=== PATIENT | male | born 1985 | race Two or more races ===

== ENCOUNTER 2024-08-26 11:59 | Emergency (ER) | payer MEDICAID, SELFPAY ==
[2024-08-26 12:06] VITALS: BP 150/95; PULSE 79; RESP 18; TEMP 37.1; O2SAT 99; BMI 34.2
--- NOTE | 2024-08-26 12:10 | XR_ITS ---
Examination: Foot, right, 3 views Technique: AP, oblique, lateral views foot, 3 views Date and time of exam: August 26, 2024 1211 hrs. Indications: Injury to the foot 2 weeks ago with redness swelling and pain, clinical diagnosis osteomyelitis Findings: No fracture or dislocation No cortical bone destruction No opaque foreign body Impression: No cortical bone destruction
--- NOTE | 2024-08-26 12:11 | PD.EDRME ---
Rapid Medical Screening Exam [facility] Arrival date/time: 08/26/24 11:59 38-year-old male with no known medical history presents to the emergency room with a chief complaint of swelling and pain to his right foot. Patient states 2 weeks ago he went and got ingrown toenails removed from his first and second digits. Patient states there is no swelling, pain and drainage coming from those toes. I have greeted and performed a focused initial assessment of this patient. A comprehensive ED assessment and evaluation of the patient, analysis of all test results, and completion of the medical decision making process will be conducted by additional ED providers. Chief Complaint: Ankle/Foot Injury Vital signs: Vital Signs Temperature 98.8 F 08/26/24 12:06 Pulse Rate 79 08/26/24 12:06 Respiratory Rate 18 08/26/24 12:06 Blood Pressure 150/95 H 08/26/24 12:06 Pulse Oximetry (%) 99 08/26/24 12:06 Oxygen Delivery Method Room Air 08/26/24 12:06 Vital signs reviewed by provider: Yes
[2024-08-26 12:28] LABS: Basophils # (Auto) 0.1 Thou/mm3 (0.0-0.2); Basophils % (Auto) 0 % (0-2.5); Eosinophils # (Auto) 0.1 Thou/mm3 (0.0-0.5); Eosinophils % (Auto) 0 % (0-10); Hematocrit 42.4 % (41.0-53.0); Hemoglobin 15.7 g/dL (13.5-16.0); Immature Granulocytes % (Auto) 0 % (0-0); Immature Granulocytes Auto 0.03 Thou/mm3 (0.00-0.00); Lymphocytes # (Auto) 1.7 Thou/mm3 (1.0-4.8); Lymphocytes % (Auto) 15 % (10-50); Mean Corpuscular Hemoglobin 30.1 pg (25.0-35.0); Mean Corpuscular Volume 81 fL (80-100); Monocytes # (Auto) 0.6 Thou/mm3 (0.0-0.8); Monocytes % (Auto) 5 % (0-12); Neutrophils % (Auto) 79 % (37-80); Nucleated Red Blood Cell % 0 /100 WBC (0); Platelet Count 285 Thou/mm3 (140-440); RDW Standard Deviation 35.8 fL (35.1-43.9); Red Blood Count 5.21 Miln/mm3 (4.50-5.90); White Blood Count 11.5 Thou/mm3 (3.8-10.6)
[2024-08-26 12:43] LABS: Sed Rate (ESR) 10 mm/hr (0-15)
[2024-08-26 12:56] LABS: Alanine Aminotransferase 18 U/L (10-49); Albumin/Globulin Ratio 1.6 (1.2-2.2); Alkaline Phosphatase 71 U/L (46-116); Anion Gap 9 (7-16); Aspartate Amino Transferase 14 U/L (0-34); BUN/Creatinine Ratio 11 Ratio (12-20); Bilirubin,Total 0.6 mg/dL (0.3-1.2); Blood Urea Nitrogen 13 mg/dL (9-23); C-Reactive Protein < 0.4 mg/dL (0.0-0.9); Calcium 10.1 mg/dL (8.3-10.6); Calcium (Corrected) 10.1 mg/dL (8.5-10.1); Carbon Dioxide 29.9 mMol/L (20.0-31.0); Chloride 99 mMol/L (98-107); Creatinine (Component) 1.2 mg/dL (0.6-1.3); Estimated Creatinine Clearance 98.8 mL/min (>60); Globulin 3.2 gm/dL (2.3-3.5); Glucose 111 mg/dL (74-106); Osmolality,Calculated 276 (275-295); Potassium 3.5 mMol/L (3.4-5.1); Sodium 138 mMol/L (136-145); Total Protein 8.2 gm/dL (5.7-8.2); eGFR > 60 See Note
[2024-08-26 15:40] VITALS: BP 147/89; PULSE 85; RESP 18; TEMP 37.2; O2SAT 98
--- NOTE | 2024-08-26 16:11 | EDNOTE_ITS ---
Lower Extremity Injury RME/HPI General Chief Complaint: Ankle/Foot Injury Stated Complaint: RIGHT TOE INFECTED AND UNABLE TO MOVE; CVA NOVEMBER W/ Time Seen by Provider: 08/26/24 16:10 Source: patient Arrival date/time: 08/26/24 11:59 This is a 38-year-old male who presents to the emergency department with complaints of pain and tenderness possible infection to first and second great toe of right foot. He does report he had a partial nail removal with a technology infusion specialist however was never started on antibiotics. Mode of arrival: ambulatory RME / HPI RME / HPI Narrative: 08/26/24 11:59 38-year-old male with no known medical history presents to the emergency room with a chief complaint of swelling and pain to his right foot. Patient states 2 weeks ago he went and got ingrown toenails removed from his first and second digits. Patient states there is no swelling, pain and drainage coming from those toes. I have greeted and performed a focused initial assessment of this patient. A comprehensive ED assessment and evaluation of the patient, analysis of all test results, and completion of the medical decision making process will be conducted by additional ED providers. Related Data Previous Rx's ?Medication ?Instructions ?Recorded clindamycin HCl 300 mg capsule 300 mg PO Q8H 7 days #2 1 caps 08/26/24 mupirocin 2 % topical ointment 1 applic topical BID 7 days #22 08/26/24 grams Allergies Allergy/AdvReac Type Severity Reaction Status Date / Time No Known Allergies Allergy Verified 08/26/24 12:02 Review of Systems Review of Systems Systems Reviewed: All systems reviewed, normal except as documented Narrative Review of Systems: Gen: No fever, no chills, no weight loss EYES: No discharge, no visual changes, no pain HEENT: No ear pain, no congestion, no sore throat PULM: No shortness of breath, no cough, no congestion CV: No chest pain, no dyspnea on exertion, no palpitations GI: No nausea, no vomiting, no diarrhea, no pain, no constipation : No frequency, no urgency, no dysuria Musc/skel: No joint pain, no back pain Skin: toe infection Psyc: No hallucinations, no depression Heme/Lymph: No easy bleeding or bruising tendencies Neuro: No weakness, no headache ED Exam Narrative Physical exam: General: Sittiing in Exam table in no acute distress, answering questions appropriately HENT: normocephalic, atraumatic, EOMI, PERRLA, moist mucous membranes Chest: chest wall is nontender Cardiac: regular rate and rhythm, normal S1 and S2, no murmurs, rubs, or gallops, capillary refill ?2 seconds Pulmonary: clear to auscultation bilaterally, no wheezing, crackles, or rhonchi Abdominal: active bowel sounds, soft, nontender, nondistended Neuro: A&OX3, CN II-XII intact, sensation grossly intact bilaterally in UE and LE. Skin: +erythmea noted to 1st and 2nd toes right foot Ext: no lower extremity edema Course Quality Measures none Orders Category Date Time Status XR foot comp RT min 3V Stat Exams 08/26/24 12:10 Completed CBC Stat Lab 08/26/24 12:15 Completed CMP [Comprehensive Metabolic Panel] Stat Lab 08/26/24 12:15 Completed CRP [C-Reactive Protein] Stat Lab 08/26/24 12:15 Completed ESR [Sed Rate (ESR)] Stat Lab 08/26/24 12:15 Completed Clindamycin Vial [Cleocin vial] Med 08/26/24 16:11 Discontinued 600 mg IM X1 ONE Vital Signs Vital signs: Vital Signs Temperature 98.8 F 08/26/24 12:06 Pulse Rate 79 08/26/24 12:06 Respiratory Rate 18 08/26/24 12:06 Blood Pressure 150/95 H 08/26/24 12:06 Pulse Oximetry (%) 99 08/26/24 12:06 Oxygen Delivery Method Room Air 08/26/24 12:06 Extremity Injury, Lower Patient data External records reviewed:: [facility] [place] previous records Clinical information provided by:: patient Social determinants that could affect healthcare access:: none Patient has the following chronic illnesses:: CVa How is presenting disease/condition affected by chronic disease/condition?: uneffected by Evaluation data The following diagnostics were reviewed and interpreted by me:: lab results and radiology exam(s) Lab and/or radiology exams considered but not ordered:: no Interpretation Summary: Examination: Foot, right, 3 views Technique: AP, oblique, lateral views foot, 3 views Date and time of exam: August 26, 2024 1211 hrs. Indications: Injury to the foot 2 weeks ago with redness swelling and pain, clinical diagnosis osteomyelitis Findings: No fracture or dislocation No cortical bone destruction No opaque foreign body Impression: No cortical bone destruction Medications / Prescriptions Medications or Prescriptions considered but not ordered:: Pain medication Medication administrations:: Medication Administration History Discontinued Medications Clindamycin Phosphate (Clindamycin Phos Inj 150 Mg/Ml Vial 6 Ml) 600 mg IM X1 ONE Stop: 08/26/24 16:12 Last Admin: 08/26/24 16:23 Dose: 600 mg Documented By: All medications administered and effective Consultations Consultation(s) initiated? (list below): No Diagnosis Extremity Injury, Lower Differential Diagnosis: ankle sprain and strain, punc ture wound of foot, fracture of toe and other (Osteomyelitis) Most likely diagnosis given after review of the tests above:: Great toe cellulitis Admission Indicated Admission indicated?: not indicated Admission Request Was there a request for admission?: No Disposition Plan Disposition Plan: Discharge Discharge Attestation Discharge Attestation: The patient and all family members were given an opportunity to ask questions and understood the discharge instructions. Discharge instructions specifically effects, indications for sooner follow up or return to the emergency department, and the expected course of current diagnosis. Patient condition: Stable Discharge Plan Plan Patient Disposition: HOME (Self Care) Patient condition on transfer: Stable Prescriptions/Referrals Prescriptions/Med Rec: New clindamycin HCl 300 mg capsule 300 mg PO Q8H 7 Days Qty: 21 0RF mupirocin 2 % ointment 1 applic topical BID 7 Days Qty: 22 0RF Referrals: Miacela Myers PA-C [Primary Care Provider] - In 1 week Problem List Clinical Impression: Cellulitis of great toe Patient/Caregiver Discharge Instructions Discharge Activity: activity as tolerated Education Materials: ED Cellulitis Additional Instructions: - Start antibiotic as directed -Please do warm soaks 3 times a day. Apply topical antibiotic as directed. Follow-up with your primary doctor on . Return to the emergency department if there is any worsening symptoms change in condition. Print Language: Guyanese Stand Alone Forms: [employer] Award Info., Patient Portal Info Letter YOLANDA/YUE Supervising Physician YOLANDA/YUE Supervising Physician: Dr. Carson
[2024-08-26] MEDS: CLINDAMYCIN PHOS INJ 150 MG/ML VIAL 6 ML 600 MG IM (16:23)
== END 2024-08-26 16:31 | disposition home or self-care (01) ==
PROVIDERS: Nurse Practitioner Family; Emergency Provider Emergency Medicine; PCP Physician Assistant Medical
DX: L03.031 Cellulitis of right toe (principal)
CPT/HCPCS: 36415; 73630; 80053; 85025; 85652; 86140; 96372; 99283; J0736

== ENCOUNTER → 2024-09-01 | Outpatient (CLI) | payer MEDICAID, SELFPAY ==
--- NOTE | 2024-09-01 09:30 | XR_ITS ---
Examination: MRI of brain without intravenous contrast. MRI brain with intravenous contrast. Date and time of exam:September 01, 2024 0940 hours INDICATIONS: Status post cerebral aneurysm, headaches since December 2023 right-sided body numbness, 28 mm acute hemorrhage in the left basal ganglia on CT stroke brain scan December 22, 2022 Technique: Multiple axial and sagittal images of the brain to been obtained. Siemens high-resolution 1.52 Lynn short bore scanner utilized. Sagittal sections, T1 weighted images, TR 500, TE 14, are performed. Axial sections proton-density and T2-weighted images have been obtained. Inversion recovery axial images, TR 9260, TE 111, TR 2500. Diffusion weighted images, axial sections, TR 4800, TE 128, B value 1000. Axial sections, ADC map, TR 4800, TE 128. Axial and coronal images were also obtained post 20 cc gadolinium administered intravenously. Findings:: Enlargement of the sella turcica is not present. The optic chiasm and infundibular stalk are not remarkable. There is no localized enlargement of the medulla or gaurang. Fourth ventricle and cerebellar tonsils appear normal in position. No subacute area of hemorrhage density is seen. Fourth ventricle is midline. Mass in the cerebellopontine angle region is not evident. 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 Mass effect upon the ventricular system is not identified. Diffusion-weighted images demonstrate no focus of restricted diffusion Contrast images demonstrate 6 mm focus enhancement left temporal lobe adjacent to the brainstem pontine level Impression: Negative for acute hemorrhage mass effect or midline shift Old infarcts brainstem left basal ganglia 6 mm focus enhancement left temporal lobe adjacent to the brainstem pontine level, recommend brain MRA MRV post intravenous contrast follow-up
== END | disposition home or self-care (01) ==
PROVIDERS: PCP Physician Assistant Medical; Referring Provider Physician Assistant Medical; Visit Provider Physician Assistant Medical
DX: G93.9 Disorder of brain, unspecified (principal); Z86.73 Personal history of transient ischemic attack (TIA), and cerebral infarction without residual deficits
CPT/HCPCS: 70553; A9579

== ENCOUNTER → 2024-10-15 | Outpatient (CLI) | payer MEDICAID, SELFPAY ==
--- NOTE | 2024-10-15 15:30 | XR_ITS ---
Examination: Retroperitoneal ultrasound, complete Technique: Multiple high resolution grayscale images of the retroperitoneum obtained, including kidneys and bladder. Exam date and time:October 15, 2024 1559 hrs. Indications: Right flank pain beginning 2 weeks ago Findings: Right kidney 12.6 cm renal cortex 2.1 cm 9 mm midpole calculus Left kidney 13.0 cm cortex 1.9 cm 8 mm midpole calculus Moderate bilateral renal parenchymal scar formation No bladder mass or bladder calculi, bladder volume 86 cc Bladder wall thickness 11 mm No prostatomegaly, volume 12.2 cc no prostate nodules Impression: Moderate bilateral renal parenchymal scar formation No hydronephrosis Bilateral renal calculi
== END | disposition home or self-care (01) ==
PROVIDERS: PCP Physician Assistant Medical; Referring Provider Physician Assistant Medical; Visit Provider Physician Assistant Medical
DX: N28.89 Other specified disorders of kidney and ureter (principal); N20.0 Calculus of kidney
CPT/HCPCS: 76770

== ENCOUNTER → 2024-12-09 | Outpatient (CLI) | payer MEDICAID, SELFPAY ==
--- NOTE | 2024-12-09 10:00 | XR_ITS ---
Examination: MRA head/brain post intravenous contrast 2-D sagittal coronal reconstructions 3-D reconstructions Date and time: December 09, 2024 1029 hours INDICATIONS: History cerebral aneurysm, numbness in the right arm 2 years, headaches dizziness TECHNIQUE AND FINDINGS: MRA brain images obtained post intravenous administration 19 cc gadolinium 3-D post processing including Juxtasellar supraclinoid portions internal carotid arteries fill as well as M1 segments middle cerebral arteries middle cerebral artery trifurcation vessels basilar artery posterior cerebral branches anterolisthesis and anterior cerebral vessels No current cerebral aneurysm No large vessel occlusions Impression: No area of cerebral aneurysm dilatation noted
== END | disposition home or self-care (01) ==
LOC: SMRI 09:59
PROVIDERS: Referring Provider Physician Assistant Medical; Visit Provider Physician Assistant Medical
DX: R90.89 Other abnormal findings on diagnostic imaging of central nervous system (principal)
CPT/HCPCS: 70545

== ENCOUNTER 2025-01-27 14:30 | Outpatient (RCR) | payer MEDICAID, SELFPAY ==
--- NOTE | 2025-01-20 13:43 | PTNOTE_ITS ---
PT OP Initial Eval Patient Information Outpatient Physical Therapy Treatment Date: 01/20/25 Visit Reasons: stroke Medical Diagnosis: R29.898; R29.90 Treatment Dx #1: Right Side Weakness Start of Care: 01/20/25 Date of Onset: 2022 Smoking Status Smoking Status: Never smoker Initial Assessment Subjective: Pt is a 39 y/o male reports of right side weakness since his 2022 CVA. Most recent MRI confirmed old infarct left brain stem. Pt has limitation with working out, lifting, overhead motions, chores, work duties, and recreational activities. 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 Pt will benefit from physical therapy to increase right UE and LE strength. Short Term and Fdc Goals 1) Increase right UE MMTs grossly to 4-/5 in 6 wks to be able to perform recreational activities 2) Increase right LE MMTs grossly to 4/5 in 6 wks to be able to perform work duties 3) Increase right critical care nurse specialist strength to 50 lbs in 6 wks to be able to perform gripping activities 4) Indep with HEP Treatment Plan 1) Manual Therapy 2) Therapeutic Activities 3) Therapeutic Exercises 4) Balance Training Frequency and Duration: 2 x wk for 6 wks Certification Dates: 01/20/25 to 04/22/25 Procedure Charges OP PT Eval Mod Complex 30 minutes: Yes
--- NOTE | 2025-01-25 14:33 | PTNOTE_ITS ---
PT Outpatient Daily Note OP Daily Note Outpatient Physical Therapy Treatment Date: 01/25/25 Visit Reasons: stroke Subjective: Pt reports he gets cramps sometimes and has difficulty with manager continuous improvement and reaching over head. Objective: Please see flow sheet for ther ex list. Assessment: Interventions given alternating sitting and standing due to poor endurance. Plan: Continue with POC. Length of Time (minutes) of Treatment: 30 Minutes Procedure Charges Therapeutic Exercise 30 minutes: Yes
--- NOTE | 2025-01-27 14:56 | PT.ODAYNRPT ---
PT Outpatient Daily Note OP Daily Note Outpatient Physical Therapy Treatment Date: 01/27/25 Visit Reasons: stroke Subjective: Pt's right hand feels sensitive and still weak. Objective: Please see flow chart for list of ther ex performed Assessment: patient encourage to use right UE as able at home to help increase mobility and strength. Pt perform hand exercises slowly and reports of fatigue at the end of PT session Plan: Continue with PT Length of Time (minutes) of Treatment: 30 Minutes Procedure Charges Therapeutic Exercise 30 minutes: Yes
== END 2025-01-27 23:59 | disposition home or self-care (01) ==
LOC: CPTX 14:30
PROVIDERS: PCP Physician Assistant Medical; Referring Provider Physician Assistant Medical; Visit Provider Physician Assistant Medical
DX: I69.351 Hemiplegia and hemiparesis following cerebral infarction affecting right dominant side (principal); R29.898 Other symptoms and signs involving the musculoskeletal system; R29.90 Unspecified symptoms and signs involving the nervous system
CPT/HCPCS: 97110; 97162

== ENCOUNTER → 2025-01-27 | Outpatient (CLI) | payer MEDICAID, SELFPAY ==
--- NOTE | 2025-01-27 13:00 | XR_ITS ---
Examination: CT abdomen and pelvis without contrast. Coronal 3-D reconstructions. Sagittal 2-D reconstructions. Date and time of exam:January 27, 2025 1237 hours INDICATIONS: Right flank pain beginning 6 months ago CTDI: vol (mGy): 10.3 DLP: (mGycm): 697 Technique: Axial images of the abdomen have been obtained, 3 mm slice thickness Intravenous contrast material has not been administered. Low dose protocols were performed. One or more of the following dose reduction techniques were used; automated exposure control, adjustment of the mA and/or KV according to patient size, use of iterative reconstruction technique. Findings: No focal liver or splenic lesions No gallstones No pancreatic or adrenal mass No renal or ureteral calculi, no hydronephrosis Normal appendix No bowel obstruction No diverticulitis No bladder mass or bladder calculi Mild prostatomegaly Moderate degenerative disc disease L5-S1 IMPRESSION: No renal or ureteral calculi, no hydronephrosis Normal appendix No bladder mass or bladder calculi
== END | disposition home or self-care (01) ==
PROVIDERS: PCP Physician Assistant Medical; Referring Provider Surgery; Visit Provider Surgery
DX: N20.0 Calculus of kidney (principal)
CPT/HCPCS: 74176

== ENCOUNTER 2025-02-24 13:30 | Outpatient (RCR) | payer MEDICAID, SELFPAY ==
--- NOTE | 2025-02-02 15:09 | PT.ODAYNRPT ---
PT Outpatient Daily Note OP Daily Note Outpatient Physical Therapy Treatment Date: 02/02/25 Visit Reasons: Stroke Subjective: Pt reports he is trying to work on improving his R hand function, tries to use it as best he can at home but notices pain with increase activity. Objective: Please see flow sheet for ther ex list. Assessment: Added interventions to focus on reaction response and reflexes using thera ball toss and superintendent quarry and toss. Pt required rest breaks due to pain response and fatigue. Plan: Continue with poC. Length of Time (minutes) of Treatment: 30 Minutes Procedure Charges Therapeutic Exercise 30 minutes: Yes
--- NOTE | 2025-02-07 15:31 | PTNOTE_ITS ---
PT Outpatient Daily Note OP Daily Note Outpatient Physical Therapy Treatment Date: 02/07/25 Visit Reasons: Stroke Subjective: Pt reports having a good PT session after last when we added more hand coordination and strength. Objective: Please see flow sheet for ther ex list. 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 Plan: Continue with poC. Length of Time (minutes) of Treatment: 30 Minutes Procedure Charges Therapeutic Exercise 30 minutes: Yes
--- NOTE | 2025-02-10 15:50 | PT.ODAYNRPT ---
PT Outpatient Daily Note OP Daily Note Outpatient Physical Therapy Treatment Date: 02/10/25 Visit Reasons: Stroke Subjective: Pt reports he is trying to use his R hand more at home for simple tasks. Objective: Please see flow sheet for ther ex list. Assessment: Continue focus on improving reaction response with technologist infectious disease and work on functional hand coordination. Plan: Continue with pOC. Length of Time (minutes) of Treatment: 30 Minutes Procedure Charges Therapeutic Exercise 30 minutes: Yes
--- NOTE | 2025-02-14 16:18 | PT.ODAYNRPT ---
PT Outpatient Daily Note OP Daily Note Outpatient Physical Therapy Treatment Date: 02/14/25 Visit Reasons: Stroke Subjective: No new complaints. Objective: Please see flow sheet for ther ex list. Assessment: Progressed R UE strengthening interventions, pt tolerated well. Plan: Continue with pOC, assess response to treatment. Length of Time (minutes) of Treatment: 30 Minutes Procedure Charges Therapeutic Exercise 30 minutes: Yes
--- NOTE | 2025-02-17 14:02 | PT.ODAYNRPT ---
PT Outpatient Daily Note OP Daily Note Outpatient Physical Therapy Treatment Date: 02/17/25 Visit Reasons: Stroke Subjective: Pt reports he has been performing squats at home because he notices he gets really fatigued with chores such as doing laundry. Objective: Please see flow sheet for ther ex list. Assessment: Interventions completed with fatigue but determined to complete it. Plan: Continue with pOC. Length of Time (minutes) of Treatment: 30 Minutes Procedure Charges Manual Urban Renewal Manager 30 minutes: Yes
--- NOTE | 2025-02-21 13:48 | PT.ODAYNRPT ---
PT Outpatient Daily Note OP Daily Note Outpatient Physical Therapy Treatment Date: 02/21/25 Visit Reasons: Stroke Subjective: Pt feels decondition. 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 Objective: Please see flow chart for list of ther ex performed Assessment: progressing with UE resistance exercise; Added GTB with shoulder exercises with good form noted with shoulder 3 way. Plan: Continue with PT Length of Time (minutes) of Treatment: 30 Minutes Procedure Charges Therapeutic Exercise 30 minutes: Yes
--- NOTE | 2025-02-24 15:30 | PT.ODAYNRPT ---
PT Outpatient Daily Note OP Daily Note Outpatient Physical Therapy Treatment Date: 02/24/25 Visit Reasons: Stroke Subjective: Pt is trusting his right arm more lately with tasks done at home. Objective: Please see flow chart for list of ther ex performed Assessment: difficulty understanding body blade only able to complete 2 positions with good form. Plan: Continue with PT Length of Time (minutes) of Treatment: 30 Minutes Procedure Charges Therapeutic Exercise 30 minutes: Yes
== END 2025-02-27 23:59 | disposition home or self-care (01) ==
LOC: CPTX 13:30
PROVIDERS: PCP Physician Assistant Medical; Referring Provider Physician Assistant Medical; Visit Provider Physician Assistant Medical
DX: I69.351 Hemiplegia and hemiparesis following cerebral infarction affecting right dominant side (principal); R29.898 Other symptoms and signs involving the musculoskeletal system
CPT/HCPCS: 97110; 97140

== ENCOUNTER 2025-03-03 14:00 | Outpatient (RCR) | payer MEDICAID, SELFPAY ==
--- NOTE | 2025-03-01 14:42 | PT.ODAYNRPT ---
PT Outpatient Daily Note OP Daily Note Outpatient Physical Therapy Treatment Date: 03/01/25 Visit Reasons: Cerebrovascular accident Subjective: No new complaints. Objective: see flow sheet for ther ex list. Assessment: Pt demonstrates fair coordination during body blade exercise, cues to correct form and to focus on technique. Plan: Continue with POC. Length of Time (minutes) of Treatment: 30 Minutes Procedure Charges Therapeutic Exercise 30 minutes: Yes
--- NOTE | 2025-03-03 15:33 | PT.ODAYNRPT ---
PT Outpatient Daily Note OP Daily Note Outpatient Physical Therapy Treatment Date: 03/03/25 Visit Reasons: Cerebrovascular accident Subjective: No new complaints or concerns. Objective: Please see flow sheet for ther ex list. Assessment: Added ball toss and catch to work on hand eye coordination, pt able to perform with good control of ball but pt c/o discomfort and pain in R arm. Plan: Continue with pOC. Length of Time (minutes) of Treatment: 30 Minutes Procedure Charges Therapeutic Exercise 30 minutes: Yes
--- NOTE | 2025-03-09 13:42 | PT.ODS1RPT ---
PT OP Progress/Discharge Note Date of Service: 03/09/25 Progress Note/DC Note Progress Note/Discharge Note: Progress Note Patient Information Visit Reasons: Cerebrovascular accident Medical Diagnosis: R29.898; R29.90 Treatment Dx #1: Right Side Weakness Service Continue Service or Discharge: Continue Service Certification Date Certification Dates: 03/09/25 to 06/08/25 Status Subjective: Pt's right side weakness is feeling stronger especially in his arm. Pt has been able to start light ADLs, gripping, lifting, chores, and recreational activities with less limitation. Pt wants to work towards being able to return back to work. 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 Pt has not met set goals and will continue to benefit from additional sessions to work on annual campaign manager strength; thank you for your referrals. Plan: Continue with PT/POC and add 8 sessions (2 x wk for 4 wks)
--- NOTE | 2025-04-14 13:57 | PT.ODS1RPT ---
PT OP Progress/Discharge Note Date of Service: 04/14/25 Progress Note/DC Note Progress Note/Discharge Note: DC Note Patient Information Visit Reasons: Cerebrovascular accident Service Discharge Date: 04/14/25 Status Assessment: Pt has been seen for 12 visits (eval + 11 visits). Pt last treated on 03/03/25. Pt has not returned to therapy due to PT plan of care not certified and has completed authorized 12 session. Pt did not meet set goals in therapy and instructed to return back to PCP for a new PT order; thank you for your referrals.
== END 2025-03-29 23:59 | disposition home or self-care (01) ==
LOC: CPTX 14:00
PROVIDERS: PCP Physician Assistant Medical; Referring Provider Physician Assistant Medical; Visit Provider Physician Assistant Medical
DX: I69.351 Hemiplegia and hemiparesis following cerebral infarction affecting right dominant side (principal)
CPT/HCPCS: 97110